=== PATIENT | female | born 1935 | race Caucasian/White ===

== ENCOUNTER → 2017-07-12 | Day surgery (SDC) | payer OTHER ==
[~2017-07-12] VITALS: Ht 165.1 cm; Wt 68.0 kg
[~2017-07-12] MED LIST: ALENDRONATE SOD35 MG PO; ASPIRIN FOR CHI81 MG PO; BONIVA150 MG PO; CAL MAG ZINC +1 EAC1 PO; CRESTOR20 MG PO; FLEXERIL10 MG PO; LIDODERM 5% PATC1 EA PO; LOVENOX30 MG/0.3 SC; Lopressor25 MG PO; METOPROLOL TARTRATE PO; MILK OF MAGNESI1 TAB PO; PERCOCET 325 MG1 TA2 PO; REQUIP PO; REQUIP1 TAB PO; RESTORIL15 MG PO; ROBAXIN-750750 MG PO; SYNTHROID,LEV112 MCG PO; VITAMIN B 12 PO; VITAMIN D31000 UNI1 PO; XANAX0.25 MG PO
--- NOTE | ~2017-07-12 | O ---
[place], [place] OPERATIVE NOTE NAME: BHUMI BARROW UNIT #: [id number] ROOM: DOCTOR: ARLENE KRAMER MD BIRTHDATE: [birth year] DOS: 07/12/2017 PREOPERATIVE DIAGNOSIS: Combined forms of age-related cataract, right eye POSTOPERATIVE DIAGNOSIS: Combined forms of age-related cataract, right eye OPERATION: Extracapsular cataract extraction by phacoemulsification with posterior chamber intraocular lens implantation, right eye. ANESTHESIA: Monitored standby. OPERATIVE FINDINGS AND PROCEDURE: 2% Xylocaine topical anesthetic gel was applied to the eye in the preop area. The patient was taken to the operating room and prepped and draped in the standard fashion for sterile intraocular surgery. A time out procedure was performed verifying correct patient, correct site and corrects lens with Alba Kramer M.D. The operating microscope was swung into position and the lid speculum was inserted. Using a Karla paracentesis blade, a paracentesis was made through clear cornea. Viscoelastic was used to fill the anterior chamber. Using a metal keratome a 2.4 mm self-sealing clear corneal cataract incision was made temporally at the limbus. Using a pre-bent 25 gauge cystotome needle, a standard continuous curvilinear capsulorrhexis was performed. The anterior capsule was removed with forceps. The lens nucleus was hydrodissected and phacoemulsified in the posterior chamber. Cortical material was removed with the irrigation aspiration hand piece and the posterior capsule was then polished with a curet under irrigation. The posterior chamber and capsular bag were filled with viscoelastic. A posterior chamber intraocular lens manufactured by: [employer], Model #[id number], and 23.0 diopters in strength were then inserted into the posterior chamber and within the capsular bag using the lens cartridge and injector system. Viscoelastic was removed using the irrigation aspiration handpiece. The anterior chamber was filled with balanced salt solution through the paracentesis. Both the paracentesis site and cataract incisions were hydrated with BSS and verified to be water-tight and self-sealing. Cefuroxime 1 mg/0.1 mL was injected into the anterior chamber through the paracentesis site. The incision checked to be water-tight using a Weck-Mely sponge. The integrity of the cataract wound and ocular tension were checked. Lid speculum and drapes were removed. The patient was transferred from the operating room to the recovery room in satisfactory condition. [place], [place] OPERATIVE NOTE NAME: BHUMI BARROW UNIT #: [id number] ROOM: DOCTOR: ARLENE KRAMER MD BIRTHDATE: [birth year] ARLENE KRAMER MD CM:OPRECORD:OPERATIVE NOTE 1230 [id number] ARLENE KRAMER MD 07/18/17 1018 interface
[2017-07-12 10:35] VITALS: BP 122/69
[2017-07-12 12:27] VITALS: BP 126/76
[2017-07-12 12:42] VITALS: BP 124/72
[2017-07-12 12:57] VITALS: BP 122/70
== END | disposition home or self-care (01) ==
LOC: SDC 07-07 11:00
DX: H25.811 Combined forms of age-related cataract, right eye (principal); M81.0 Age-related osteoporosis without current pathological fracture; E78.5 Hyperlipidemia, unspecified; E03.9 Hypothyroidism, unspecified; F41.9 Anxiety disorder, unspecified; G25.81 Restless legs syndrome; Z90.710 Acquired absence of both cervix and uterus; Z88.8 Allergy status to other drugs, medicaments and biological substances

== ENCOUNTER → 2017-08-09 | Day surgery (SDC) | payer OTHER ==
[~2017-08-09] VITALS: Ht 165.1 cm; Wt 68.0 kg
--- NOTE | ~2017-08-09 | O ---
[place], [place] OPERATIVE NOTE NAME: BHUMI BARROW UNIT #: [id number] ROOM: DOCTOR: ARLENE KRAMER MD BIRTHDATE: [birth year] DOS: 08/09/2017 PREOPERATIVE DIAGNOSIS: Cataract, left eye. POSTOPERATIVE DIAGNOSIS: Cataract, left eye. OPERATION: Extracapsular cataract extraction by phacoemulsification with posterior chamber intraocular lens implantation, left eye. ANESTHESIA: Monitored standby. OPERATIVE FINDINGS AND PROCEDURE: 2% Xylocaine topical anesthetic gel was applied to the eye in the preop area. The patient was taken to the operating room and prepped and draped in the standard fashion for sterile intraocular surgery. A time out procedure was performed verifying correct patient, correct site and corrects lens with Alba Kramer M.D. The operating microscope was swung into position and the lid speculum was inserted. Using a Karla paracentesis blade, a paracentesis was made through clear cornea. Viscoelastic was used to fill the anterior chamber. Using a metal keratome a 2.4 mm self-sealing clear corneal cataract incision was made temporally at the limbus. Using a pre-bent 25 gauge cystotome needle, a standard continuous curvilinear capsulorrhexis was performed. The anterior capsule was removed with forceps. The lens nucleus was hydrodissected and phacoemulsified in the posterior chamber. Cortical material was removed with the irrigation aspiration hand piece and the posterior capsule was then polished with a curet under irrigation. The posterior chamber and capsular bag were filled with viscoelastic. A posterior chamber intraocular lens manufactured by: [employer], Model #[id number] 23.5 diopters in strength were then inserted into the posterior chamber and within the capsular bag using the lens cartridge and injector system. Viscoelastic was removed using the irrigation aspiration handpiece. The anterior chamber was filled with balanced salt solution through the paracentesis. Both the paracentesis site and cataract incisions were hydrated with BSS and verified to be water-tight and self-sealing. Cefuroxime 1 mg/0.1 mL was injected into the anterior chamber through the paracentesis site. The incision checked to be water-tight using a Weck-Emly sponge. The integrity of the cataract wound and ocular tension were checked. Lid speculum and drapes were removed. The patient was transferred from the operating room to the recovery room in satisfactory condition. [place], [place] OPERATIVE NOTE NAME: BHUMI BARROW UNIT #: [id number] ROOM: DOCTOR: ARLENE KRAMER MD BIRTHDATE: [birth year] ARLENE KRAMER MD CM:OPRECORD:OPERATIVE NOTE 1145 1157 ARLENE KRAMER MD 08/09/17 1155 interface
[2017-08-09 10:43] VITALS: BP 148/69
[2017-08-09 11:43] VITALS: BP 139/67
== END | disposition home or self-care (01) ==
LOC: SDC 08-04 10:15
DX: H25.812 Combined forms of age-related cataract, left eye (principal); M81.0 Age-related osteoporosis without current pathological fracture; E78.5 Hyperlipidemia, unspecified; I25.10 Atherosclerotic heart disease of native coronary artery without angina pectoris; E03.9 Hypothyroidism, unspecified; F41.9 Anxiety disorder, unspecified; Z98.890 Other specified postprocedural states; M19.90 Unspecified osteoarthritis, unspecified site; Z79.899 Other long term (current) drug therapy

== ENCOUNTER 2019-05-20 11:57 | Inpatient (IN) | payer OTHER ==
[2019-05-20] VITALS (7 sets, daily range): BP systolic 98–115; BP diastolic 60–76
[~2019-05-20] VITALS: Ht 165.1 cm; Wt 58.1 kg
[~2019-05-20 11:57] MED LIST changes: +ACETAMINOPHEN325 M2 PO; +CALCIUM CARBON600 M4 PO; +DOXYCYCLINE100 M3 PO; +DULCOLAX10 M1 R; +Duragesic 25 M25 MCG TD; +FLEET MINERAL133 ML PO; +Ferrex 150150 MG PO; +MAG-AL LIQUID 230 ML PO; +MAGNESIUM OXID400 MG PO; +METOPROLOL SUCC50 M1 PO; +MILK OF MA400 MG/5 M PO; +MIRALAX17 GM PO; +MOVANTIK25 MG PO; +OXYCODONE HCL5 M1 PO; +REQUIP2 MG PO
[2019-05-20 12:29] LABS: BASO % 0.7 % (0.0-1.0); EOS # 0.1 10*3/uL (0.0-0.4); EOS % 2.1 % (1.0-4.0); HEMATOCRIT 41.5 % (37.0-47.0); HEMOGLOBIN 13.7 g/dl (12.0-16.0); LYMPH # 0.9 10*3/uL (1.3-4.4); LYMPH % 15.6 % (27.0-41.0); MEAN CELL VOLUME 96.5 fl (81.0-99.0); MEAN CORPUSCULAR HGB 31.9 pg (27.0-31.0); MEAN PLATELET VOLUME 12.3 fl (9.6-12.3); MONO # 0.2 10*3/uL (0.1-1.0); MONO % 4.2 % (3.0-9.0); NEUT # 4.5 10*3/uL (2.3-7.9); NEUT % 77.2 % (47.0-73.0); PLATELET COUNT AUTOMATED 93 10*3/uL (130-400); RED CELL DISTRI WIDTH 12.4 % (0-14.5); WHITE BLOOD COUNT 5.8 10*3/uL (4.8-10.8)
[2019-05-20 12:41] LABS: ACT PARTIAL THROMBO TIME 25.7 SECONDS (20.0-32.1)
[2019-05-20 12:54] LABS: ALBUMIN 3.8 gm/dl (3.1-4.5); ALKALINE PHOSPHATASE 68 U/L (45-117); BUN 16 mg/dl (7-24); CHLORIDE 106 mmol/L (98-107); CREATININE 1.02 mg/dL (0.55-1.02); POTASSIUM 4.1 mmol/L (3.5-5.1); SGOT/AST 21 IU/L (3-35); SGPT/ALT 16 U/L (12-78); SODIUM 142 mmol/L (136-145); TOTAL PROTEIN 7.7 gm/dL (6.4-8.2)
[2019-05-20 12:55] LABS: LIPASE 122 U/L (73-393)
--- NOTE | 2019-05-20 12:57 | NUR ---
TROP IS 0.520. DOC MADE AWARE.
--- NOTE | 2019-05-20 13:42 | NUR ---
PT IS RESTING IN ROOM WITH FAMILY AT BEDSIDE. VS STABLE. WILL CONTINUE TO MONITOR.
--- NOTE | 2019-05-20 14:43 | NUR ---
PT IS SITTING IN WHEEL CHAIR FOR COMFORT. SHE WAS VERY UNCOMFORTABLE IN BED AND REQUESTED TO BE SAT IN THE WHEEL CHAIR. SHE HAS NO COMPLAINTS AT THIS TIME. VS STABLE. WILL CONTINUE TO MONITOR.
--- NOTE | 2019-05-20 15:54 | NUR ---
nurse caring for pt notified of 2nd trop result of 0.7 along with adán private branch exchange service adviser who caring for pt. family requested adán be notified that pt had mri at [facility] recently
--- NOTE | 2019-05-20 16:15 | NUR ---
CALLED TO GIVE REPORT AND THEY NEED SOME TIME. WILL CONTACT BACK.
[2019-05-20] MEDS ORDERED: DURAGESIC1 EACH TD (18:10)
[2019-05-20] MEDS ORDERED: OXYCODONE HCL5 MG PO (18:20)
[2019-05-20] MEDS ORDERED: QUESTRAN POWDE378 GM PO (18:21)
[2019-05-20] MEDS ORDERED: POTASSIUM CHLO10 ME5 PO (18:22)
[2019-05-20] MEDS ORDERED: IMODIUM A-D2 M2 PO (18:23)
[2019-05-20] MEDS ORDERED: LASIX20 MG PO (18:24)
--- NOTE | 2019-05-20 18:26 | NUR ---
A 84, admitted to , under the services of SEAN Jung DO with a diagnosis of RESP FAILURE. Chief complaint is DYSPNEA. Patient arrived via wheel chair from ER. Monitor applied. Initial assessment completed. Vital signs taken and recorded. SEAN JUNG DO notified of admission to the unit. Orders received. See assessment for past medical history, medications and allergies. Patient and/or family oriented to unit. [facility]. visitation policy reviewed. Clothing/patient valuable form completed. EDD GIORDANO
--- NOTE | 2019-05-20 19:35 | NUR ---
CALL PLACED TO [facility] PROOF PRESS OPERATOR, ADVISED OF CONSULT FOR ELEVATED TROPONINS AND UT ON EKG
--- NOTE | 2019-05-20 19:45 | NUR ---
RECEIVED CALL BACK FROM DR. KASPER, ORDERED FOR LOVENOX 1MG/KG WITH PHARMACY TO DOSEX 1 ASA 81 MG NOW, AND NPO AFTER MIDNIGHT.
--- NOTE | 2019-05-20 20:04 | NUR ---
24 HR chart check completed.
--- NOTE | 2019-05-20 20:30 | NUR ---
RESTING IN BED WATCHING TV WITH NO DISTRESS NOTED. RESPIRATIONS EASY. LUNGS DIMINISHED, CLEAR. PULSE OX 98% 2L. TRACE BLE EDEMA. CALL LIGHT WITHIN REACH. NO VOICED COMPLAINTS. DAUGHTER PRESENT AT BEDSIDE
--- NOTE | 2019-05-20 20:45 | NUR ---
DR DUNHAM CONTACTED AND INFORMED PATIENT AND FAMILY REQUESTING HOME MEDS. MED REC UP TO DATE IN COMPUTER
--- NOTE | 2019-05-20 21:00 | NUR ---
PATIENT SPECIFICALLY REQUESTING MEDS FOR RESTLESS LEGS. DR DUNHAM AGAIN CONTACTED AND INFORMED
--- NOTE | 2019-05-20 21:41 | NUR ---
REQUESTED AND RECEIVED ROBAXIN AND REQUIP PER PRN ORDER FOR COMPLAINTS OF RESTLESS LEGS. WILL MONITOR
--- NOTE | 2019-05-20 22:18 | NUR ---
REQUESTED AND RECEIVED OXY PER PRN ORDER FOR COMPLAINTS OF LEG PAIN RATING AN 8. CALL LIGHT WITHIN REACH. WILL MONITOR FOR EFFECTIVENESS
[2019-05-21] VITALS: BP 112/58
--- NOTE | 2019-05-21 | NUR ---
EARLIER MEDS APPEAR EFFECTIVE, SLEEPING. RESPIRATIONS EASY. VSS. CALL LIGHT WITHIN REACH. BED ALARM MAINTAINED FOR SAFETY
--- NOTE | 2019-05-21 02:30 | NUR ---
SLEEPING. NO DISTRESS NOTED. RESPIRATIONS EASY. CALL LIGHT WITHIN REACH. BED ALARM MAINTAINED FOR SAFETY
--- NOTE | 2019-05-21 06:00 | NUR ---
SLEPT THROUGHOUT NIGHT WITH NO DISTRESS NOTED. RESPIRATIONS EASY. REMAINS NPO PER ORDER. CALL LIGHT WITHIN REACH. NO VOICED COMPLAINTS. BED ALARM MAINTAINED FOR SAFETY
[2019-05-21 06:36] LABS: BASO # 0.1 10*3/uL (0.0-0.1); BASO % 0.9 % (0.0-1.0); EOS # 0.2 10*3/uL (0.0-0.4); EOS % 3.9 % (1.0-4.0); HEMATOCRIT 39.5 % (37.0-47.0); HEMOGLOBIN 12.7 g/dl (12.0-16.0); LYMPH # 1.5 10*3/uL (1.3-4.4); LYMPH % 27.1 % (27.0-41.0); MEAN CELL VOLUME 96.8 fl (81.0-99.0); MEAN CORPUSCULAR HGB 31.1 pg (27.0-31.0); MEAN CORPUSCULAR HGB CONC 32.2 g/dl (33.0-37.0); MEAN PLATELET VOLUME 12.6 fl (9.6-12.3); MONO # 0.4 10*3/uL (0.1-1.0); MONO % 7.3 % (3.0-9.0); NEUT # 3.3 10*3/uL (2.3-7.9); NEUT % 60.8 % (47.0-73.0); PLATELET COUNT AUTOMATED 93 10*3/uL (130-400); RED BLOOD COUNT 4.08 10*6/uL (4.10-5.10); RED CELL DISTRI WIDTH 12.3 % (0-14.5); WHITE BLOOD COUNT 5.4 10*3/uL (4.8-10.8)
[2019-05-21 06:38] LABS: ALBUMIN 3.3 gm/dl (3.1-4.5); BUN 17 mg/dl (7-24); CHLORIDE 107 mmol/L (98-107); CHOLESTEROL 223 mg/dL (<200); CREATININE 0.89 mg/dL (0.55-1.02); PHOSPHOROUS 3.8 mg/dL (2.5-4.9); SGOT/AST 16 IU/L (3-35); SGPT/ALT 15 U/L (12-78); SODIUM 144 mmol/L (136-145); TOTAL PROTEIN 6.8 gm/dL (6.4-8.2); TRIGLYCERIDES 151 mg/dl (<150); VLDL CHOLESTEROL 30 mg/dL (6-40)
[2019-05-21 06:45] LABS: ALKALINE PHOSPHATASE 61 U/L (45-117); FREE T4 1.07 ng/dl (0.76-1.46); HDL CHOLESTEROL 42 mg/dl (40-60); LDL CHOLESTEROL 151 mg/dL (9-159); THYROID STIM HORMONE (HS) 0.521 uIU/ml (0.358-4.75)
[2019-05-21 07:43] LABS: VITAMIN D, 25-HYDROXY 41.2 ng/mL (30-100)
[2019-05-21 07:46] VITALS: BP 90/60
--- NOTE | 2019-05-21 08:36 | NUR ---
PHYSICAL THERAPY Screen received as well as orders for PT will follow, thank you La Bryan PT
--- NOTE | 2019-05-21 08:49 | NUR ---
Nursing screen and Occupational Therapy referral received. Thank you. Ginger Leon OTR/L
--- NOTE | 2019-05-21 09:00 | NUR ---
Onshore Diver in to talk to patient. Patient states lives at [facility] with alone. There are none steps in the home. Physician: bharathi palencia Pharmacy: [facility] Home health services: none Patient's level of ADLs: MAX ASSIST Patient has working utilities: all working DME: wheelchair Follow-up physician's appointment after d/c: will be made by hospitalist nurse director upon discharge Does patient want to access PORTAL?: no Discharge plan discussed with patient she states she lives at [facility] assisted living facility, she states she has not walker for greater than one year and gets around in her wheelchair, she states the staff of [facility] helps her, she states she will return to [facility] when medically stable and denies any home needs. DIANA POWERS
--- NOTE | 2019-05-21 09:54 | NUR ---
FENTYNAL PATCH THAT PATIENT CAME IN WITH ON WAS WASTED, WITNESSED BY OKSANA KYLE RN. NEW PATCH PLACED ON RIGHT UPPER BACK
--- NOTE | 2019-05-21 09:55 | NUR ---
SPOKE WITH DR. MCBRIDE, OKAY TO HOLD METOPROLOL 25MG, REASSESS AFTERNOON BLOOD PRESSURE. IF BLOOD PRESSURE COMES UP OR IF HEART RATE INCREASES, GIVE METOPROLOL OTHERWISE OKAY TO HOLD TODAY
[2019-05-21 12:00] VITALS: BP 86/53
--- NOTE | 2019-05-21 12:15 | NUR ---
Occupational therapy orders received and OT evaluation completed in full on floor four. Patient precautions include fall risk, MANAGER WORK, weakness, L UE paralysis, stand/pivot transfers Max Ax2. Per OT evaluation, OT recommends patient return to her previous living with assistance. Per patient, she is at her baseline. No further OT is indicated at this time. Patient complexity is high, [id number]. Thank you for the referral. Tangela Gaines, OTR/L
[2019-05-21 16:00] VITALS: BP 121/60
--- NOTE | 2019-05-21 19:00 | NUR ---
ASSUMED CARE FOR THIS PT AT THIS TIME. NO C/O VOICED AT PRESENT. CALL LIGHT IN REACH. BED ALARM ON.
[2019-05-21 20:00] VITALS: BP 112/66
--- NOTE | 2019-05-21 21:02 | NUR ---
PT MEDICATED W/ROBAXIN FOR MUSCLE ACHES AND OXYCODONE FOR BLE PAIN. PT RESTING QUIETLY IN BED. CALL LIGHT IN REACH.
[2019-05-22] VITALS: BP 124/69
[2019-05-22 08:00] VITALS: BP 90/50
[2019-05-22 12:00] VITALS: BP 108/64
--- NOTE | 2019-05-22 17:24 | NUR ---
[facility] Discharge instructions reviewed with patient/family. Patient receptive and verbalizes understanding. Follow-up care arranged. Written instructions given to patient/family. RUBY ESTEVES
== END 2019-05-22 17:24 | disposition home or self-care (01) | DRG 280 ==
LOC: ED 11:57 → 4E 15:11 → EDHOLD 15:11 → 4E 16:14 → EDHOLD 16:14 → 4E 05-22 17:24
PROVIDERS: Emergency Medicine; Registered Nurse; ADMIT Family Medicine
DX: I21.4 Non-ST elevation (NSTEMI) myocardial infarction (principal); J96.01 Acute respiratory failure with hypoxia; N17.9 Acute kidney failure, unspecified; E03.9 Hypothyroidism, unspecified; E78.5 Hyperlipidemia, unspecified; F41.9 Anxiety disorder, unspecified; G25.81 Restless legs syndrome; I25.10 Atherosclerotic heart disease of native coronary artery without angina pectoris; G89.4 Chronic pain syndrome; M54.9 Dorsalgia, unspecified; M25.512 Pain in left shoulder; M81.0 Age-related osteoporosis without current pathological fracture; I10 Essential (primary) hypertension; R54 Age-related physical debility; M19.90 Unspecified osteoarthritis, unspecified site; Z96.642 Presence of left artificial hip joint; Z96.653 Presence of artificial knee joint, bilateral; D69.6 Thrombocytopenia, unspecified; Z79.01 Long term (current) use of anticoagulants; Z90.710 Acquired absence of both cervix and uterus; Z83.6 Family history of other diseases of the respiratory system; Z88.5 Allergy status to narcotic agent; Z88.8 Allergy status to other drugs, medicaments and biological substances; Z79.82 Long term (current) use of aspirin; Z79.899 Other long term (current) drug therapy